=== PATIENT | female | born 1965 | race Caucasian/White ===

== ENCOUNTER → 2023-11-13 08:15 | Outpatient (REF) | payer BC, SELFPAY | LOC: DHCBC HW 08:15 | PROVIDERS: ATTENDING PHYSICIAN Internal Medicine Cardiovascular Disease; FAMILY PHYSICIAN Family Medicine | DX: R07.2 Precordial pain (principal); R06.09 Other forms of dyspnea | CPT/HCPCS: 93306 ==

== ENCOUNTER → 2023-11-23 13:32 | Outpatient (REF) | payer BC, SELFPAY | LOC: RCS 13:32 | PROVIDERS: ATTENDING PHYSICIAN Internal Medicine Cardiovascular Disease; FAMILY PHYSICIAN Family Medicine | DX: R07.2 Precordial pain (principal); R06.09 Other forms of dyspnea | CPT/HCPCS: 93017 ==